=== PATIENT | female | born 1970 | race Caucasian/White ===

== ENCOUNTER 2018-04-27 09:38 | Emergency (ER) | payer OTHER ==
[~2018-04-27] VITALS: Ht 157.5 cm; Wt 63.5 kg
[~2018-04-27 09:38] MED LIST: AUGMENTIN 875875 MG PO; BACTRIM DS TAB1 EACH PO; CIPRO500 MG PO; DOXYCYCLINE 10100 MG PO; FLEXERIL PO; HYDROCODONE-AP1 EAC6 PO
[2018-04-27 10:14] LABS: ABSOLUTE BASOPHILS 0.1 thou/uL (0.0-0.2); ABSOLUTE EOSINOPHILS 0.1 thou/uL (0.0-0.7); ABSOLUTE LYMPHOCYTES 1.6 thou/uL (0.8-5.3); ABSOLUTE MONOCYTES 0.5 thou/uL (0.0-1.2); ABSOLUTE NEUTROPHILS 3.5 thou/uL (1.6-8.1); EOSINOPHILS 2.3 %; HEMATOCRIT 41.2 % (37.0-47.0); HEMOGLOBIN 13.9 gm/dL (12.0-15.0); LYMPHOCYTES 27.6 %; MCH 29.4 pg (26.0-34.0); MCHC 33.7 g/dL (28.0-37.0); MCV 87.2 fL (80.0-100.0); MONOCYTES 8.4 %; MPV 7.7 fl. (7.2-11.1); NUCLEATED RBCS 0 /100WBC; PLATELET COUNT* 288 thou/uL (150-400); POLYS 60.7 %; RBC 4.73 mil/uL (4.20-5.00); RDW-CV 12.7 % (10.5-14.5); WBC 5.8 thou/uL (4.0-11.0)
[2018-04-27 10:29] LABS: ANION GAP 4 mmol/L (7-16); BUN 14 mg/dL (7-18); CALCIUM 8.8 mg/dL (8.5-10.1); CHLORIDE 105 mmol/L (98-107); CO2 31 mmol/L (21-32); CREATININE 0.7 mg/dL (0.6-1.3); GLUCOSE 111 mg/dL (70-99); POTASSIUM 3.4 mmol/L (3.5-5.1); SODIUM 140 mmol/L (136-145)
[2018-04-27 10:36] LABS: ALBUMIN 3.3 g/dL (3.4-5.0); ALKALINE PHOSPHATASE 92 U/L (46-116); SGOT 10 U/L (15-37); SGPT 19 U/L (30-65); TOTAL BILIRUBIN 0.2 mg/dL (<0.1-1.0); TROPONIN-I LEVEL <0.06 ng/mL (<0.06)
[2018-04-27] MEDS ORDERED: FLEXERIL PO (12:37)
[2018-04-27 12:49] VITALS: BP 151/74
--- NOTE | 2018-04-27 14:05 | EKG ---
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
--- NOTE | 2018-04-27 14:09 | EKG ---
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
== END 2018-04-27 12:49 | disposition home or self-care (01) ==
LOC: M.ERS 09:38
PROVIDERS: Emergency Medicine Emergency Medical Services
DX: M25.511 Pain in right shoulder (principal); F17.210 Nicotine dependence, cigarettes, uncomplicated; Z90.710 Acquired absence of both cervix and uterus